=== PATIENT | male | born 1970 | race Caucasian/White ===

== ENCOUNTER 2019-02-13 05:37 | Outpatient (CLI) | payer OTHER ==
[~2019-02-13] VITALS: Ht 177.8 cm; Wt 81.6 kg
[2019-02-13] MEDS ORDERED: MULT-178 PO (09:29)
== END 2019-02-13 11:41 | disposition home or self-care (01) ==
LOC: PREOP 05:37
PROVIDERS: ATTEND Internal Medicine
DX: Z01.818 Encounter for other preprocedural examination (principal)

== ENCOUNTER 2019-02-17 07:16 | Day surgery (SDC) | payer OTHER ==
--- NOTE | 2019-01-30 20:11 | HISTORY AND PHYSICAL ---
DATE OF SERVICE: COLONOSCOPY HISTORY AND PHYSICAL HISTORY OF PRESENT ILLNESS: The patient is a 48-year-old white male, who presented to the office on 01/19/2019 for yearly wellness evaluation. He had not previously had a colonoscopy and was deemed to be of average risk. He believes there may be one uncle that had colon cancer, but no first degree relatives that he is aware of. He denies any bowel problems. He has noted no bright red blood per rectum or melena. PAST MEDICAL HISTORY: Significant for insulin resistance and mild ALT and AST elevation with no evidence for viral hepatitis and no alcohol consumption consistent with nonalcoholic fatty liver disease, possible ECHAVARRIA. He reports that he has been feeling well and he voiced no complaints. His had concerns about a mole on his back. FAMILY HISTORY: Updated. Father in his 50s of cirrhosis of the liver, complications from alcoholism. Mother is living at age of 72. He has what sounds like a probable carcinoid tumor and had a past history of DVT, possible pulmonary embolism, but has been doing pretty well on monthly injections of what I assume as Sandostatin. He has one brother alive and well with no health problems in his 40s and has a half-sister, who is in good health in her 50s. SOCIAL HISTORY: He has an office type job, is with no drinking or smoking history. 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 He has not been running on a regular basis. At times, he has done so in the past. PHYSICAL EXAMINATION: GENERAL: Reveals a well-appearing white male, whose weight is 184.6 pounds, is stable from 6 months ago. Blood pressure 100/68. HEENT: Unremarkable. Sclerae nonicteric. NECK: Revealed no JVD, adenopathy or bruits. CHEST: Clear to auscultation. CARDIOVASCULAR: Revealed a regular rate and rhythm without murmur, S3 or S4. ABDOMEN: Soft and supple without mass, organomegaly or tenderness. RECTAL: Exam was deferred at the time of colonoscopy. EXTREMITIES: Revealed no cyanosis, clubbing or edema. SKIN: Evaluation revealed no suspicious nevi. He had a small nonpigmented seborrheic keratoses on his back that he was reassured about. Ear canals were clear with normal TMs. ASSESSMENT AND PLAN: Good health habits, well on this evaluation. We discussed the fact that his ideal body weight was probably about 10 pounds less and more important to try to obtain because he still has mild ALT elevation, which was 56, AST was 36 with a total bilirubin of 1.4. The remainder of his chemistry panel was normal except for glucose of 113. We did discuss the importance of portion control and since he has enjoyed running in the past, he was encouraged to go ahead and sign up for 5K and try to get in shape for, as a way to help out with the weight loss. He was scheduled for followup in six months, at which time we will obtain a chemistry panel and a screening PSA as well as a lipid panel. I did discuss increased risk for diabetes considering his current insulin resistance. Prep instructions for screening colonoscopy were given and questions were answered and the procedure was set up for 02/17/2019. Job ID: [id number] DocumentID: [id number] Dictated Date: 01/20/2019 08:29:22 Design Engineering Technician Date: 01/20/2019 09:18:37 Dictated By: RUT ANSARI MD MTDD
[~2019-02-17] VITALS: Ht 177.8 cm; Wt 81.6 kg
[~2019-02-17 07:16] MED LIST: MULT-178 PO
[2019-02-17] MEDS ORDERED: D5 LR IV SOLUTION 1,000 ML IV ONE (07:21)
[2019-02-17] MEDS ORDERED: D5 LR IV SOLUTION 1,000 ML IV STA (07:35)
[2019-02-17 07:42] VITALS: BP 126/81
[2019-02-17] MEDS ORDERED: LIDOCAINE JELLY 2% 6 ML SYRINGE MM PRN (07:45)
[2019-02-17] MEDS ORDERED: PROPOFOL INJECTION 50 ML IV ONE (08:28)
[2019-02-17] MEDS ORDERED: MIDAZOLAM 2 MG/2 ML (VERSED) VIAL ONE (08:28)
[2019-02-17] MEDS ORDERED: LIDOCAINE JELLY 2% 6 ML SYRINGE ONE (08:29)
--- NOTE | 2019-02-17 09:04 | Pre-Op Note & Conscious Sedat ---
Pre-Operative Progress Note H&P Reviewed The H&P was reviewed, patient examined and no changes noted. Date H&P Reviewed: Feb 17, 2019 Time H&P Reviewed: 07:55 Conscious Sedation Pre-Proced ASA Score 2 For ASA 3 and 4: Consider anesthesia and medical clearance. Also, for patients with a history of failed moderate sedation consider anesthesia. Airway Lungs Heart ASA score ASA 1: a normal healthy patient ASA 2: a patient with a mild systemic disease (mid diabetes, controlled hypertension, obesity ASA 3: a patient with a severe systemic disease that limits activity (angina, COPD, prior Myocardial infarction) ASA 4: a patient with an incapacitating disease that is a constant threat to life (CHF, renal failure) ASA 5: a moribund patient not expected to survive 24 hrs. (ruptured aneurysm) ASA 6: a declared brain- patient whose organs are being harvested. For emergent operations, add the letter E after the classification Mallampati Classification Grade 2 Sedation Plan Analgesia, Amnesia, Plan communicated to team members, Discussed options with patient/fam, Discussed risks with patient/fam The patient is an appropriate candidate to undergo the planned procedure, sedation, and anesthesia. The patient immediately re-assessed prior to indication. RUT ANSARI MD Feb 17, 2019 09:04
[2019-02-17 09:20] VITALS: BP 107/63
[2019-02-17 09:50] VITALS: BP 111/72
[2019-02-17 10:20] VITALS: BP 111/72
--- NOTE | 2019-02-17 10:24 | Anesthesia-General Post-Op ---
MAC Patient Condition Mental Status/LOC: Same as Preop Cardiovascular: Satisfactory Nausea/Vomiting: Absent Respiratory: Satisfactory Pain: Controlled Complications: Absent Post Op Complications Complications None Follow Up Care/Instructions Patient Instructions None needed. Anesthesiology Discharge Order Discharge Order Patient is doing well, no complaints, stable vital signs, no apparent adverse anesthesia problems. No complications reported per nursing. ELLIE MCELROY CRNA Feb 17, 2019 10:24
[2019-02-17 10:55] VITALS: BP 131/85
--- NOTE | 2019-02-17 14:59 | OPERATIVE REPORT ---
DATE OF SERVICE: 02/17/2019 COLONOSCOPY SUMMARY INDICATION FOR PROCEDURE: Screening colonoscopy. The patient was placed in the left lateral decubitus position. Prior to undergoing colonoscopy, digital rectal evaluation was performed. Anal sphincter tone was normal and the perianal reflex was intact. Prostate was unremarkable to digital inspection. No abnormalities were noted on digital inspection of the anal canal or distal rectal vault. The colonoscope was then inserted into the rectum and under direct visualization, advanced to the cecum. The cecum was identified by identification of the ileocecal valve and cecal strap. Photographic documentation was obtained. A careful inspection was made as the colonoscope was withdrawn. FINDINGS: There was no evidence for internal or external hemorrhoids and the rectum was unremarkable. At the rectosigmoid junction was a diminutive hyperplastic appearing polyp, it was biopsied and ablated and submitted for histopathology. Present in the proximal sigmoid colon was another small 2 to 3 mm polyp, which was biopsied and ablated with no blood loss. No other sigmoid colonic abnormalities were appreciated. The splenic flexure was unremarkable as was the descending colon. Present in the distal transverse colon was a diminutive 2 to 3 mm polyp, which was biopsied and ablated and submitted for histopathology. There is a little bit of crinkling appearance at the hepatic flexure, could not rule out the possibility of a flat adenoma, biopsy was obtained and submitted for histopathology. No inflammatory change or other mucosal abnormality was noted. The ascending colon and cecum were normal. ASSESSMENT: Three small polyps were removed today via hot forceps from the rectosigmoid junction, proximal sigmoid colon and distal transverse colon. Slightly abnormal appearing hepatic fold was biopsied. We will await histopathology report before recommending surveillance colonoscopy. If the hepatic fold does not cuff turner machine operator to be neoplastic process, we will likely be advocating 10 years as the patient is not aware of any family history for colon cancer. Job ID: [id number] DocumentID: [id number] Dictated Date: 02/17/2019 11:05:06 Public Administration Teacher Date: 02/17/2019 14:58:37 Dictated By: RUT ANSARI MD
== END 2019-02-17 10:20 | disposition home or self-care (01) ==
LOC: ENDO 07:16
PROVIDERS: ATTEND Internal Medicine
DX: Z12.11 Encounter for screening for malignant neoplasm of colon (principal); K63.5 Polyp of colon; K62.1 Rectal polyp; E88.81 Metabolic syndrome and other insulin resistance; Z88.0 Allergy status to penicillin

== ENCOUNTER → 2020-05-07 | Outpatient (CLI) | payer OTHER | LOC: LABNPT 05:50 | PROVIDERS: ATTEND Internal Medicine | DX: Z20.828 Contact with and (suspected) exposure to other viral communicable diseases (principal) | CPT/HCPCS: 87635 ==

== ENCOUNTER → 2020-08-12 | Outpatient (CLI) | payer OTHER | LOC: LABNPT 08:35 | PROVIDERS: ATTEND Internal Medicine | DX: U07.1 COVID-19 (principal) | CPT/HCPCS: 87635 ==